=== PATIENT | female | born 1995 | race Caucasian/White ===

== ENCOUNTER 2020-07-04 11:20 | Emergency (ER) | payer SELFPAY ==
[~2020-07-04] VITALS: Ht 167.6 cm; Wt 81.7 kg
[~2020-07-04 11:20] MED LIST: HYDACE5 PO; RXCODACESY PO; [UNRECOGNIZED DRUG - OTHER]
== END 2020-07-04 14:25 | disposition home or self-care (01) ==
LOC: ER 11:20
DX: S20.212A Contusion of left front wall of thorax, initial encounter (principal); S30.1XXA Contusion of abdominal wall, initial encounter; V48.6XXA Car passenger injured in noncollision transport accident in traffic accident, initial encounter; Y92.410 Unspecified street and highway as the place of occurrence of the external cause
CPT/HCPCS: 71046; 99284-25